=== PATIENT | male | born 1940 | race Two or more races ===

== ENCOUNTER 2018-07-27 12:16 | Emergency (ER) | payer MEDICARE, OTHER ==
[~2018-07-27] VITALS: Ht 175.3 cm; Wt 58.5 kg
[2018-07-27 12:17] VITALS: Ht 175.3 cm; Wt 58.5 kg
--- NOTE | 2018-07-27 12:31 | ERD ---
ER Documentation Chief Complaint Chief Complaint right 4th finger crush injury 4 days ago HPI 77-year-old male, presents to the emergency department, complaining of right fourth finger pain after sustaining an injury with a door 4 days ago. The patient is complaining of pressure-like sensation, but no fever, no chills, no numbness, full range of motion. ROS All systems reviewed and are negative except as per history of present illness. Allergies Allergies: Coded Allergies: No Known Allergy (Unverified , 07/27/18) FmHx Family History: No diabetes, No coronary disease Physical Exam Vitals Vital Signs Date Temp Pulse Resp B/P (MAP) Pulse Ox O2 O2 Flow FiO2 Time Delivery Rate 07/27/18 98.0 70 18 154/74 98 Room Air 14:03 (100) 07/27/18 98.3 95 18 166/74 98 12:17 (104) Physical Exam Const: No acute distress Head: Atraumatic Eyes: Normal Conjunctiva ENT: Normal External Ears, Nose and Mouth. Neck: Full range of motion. No meningismus. Resp: Clear to auscultation bilaterally Cardio: Regular rate and rhythm, no murmurs Abd: Soft, non tender, non distended. Normal bowel sounds Skin: No petechiae or rashes Back: No midline or flank tenderness Ext: No cyanosis, or edema Right fourth finger: Subungual hematoma. No deformity, capillary refill less than 3 seconds. Neur: Awake and alert Psych: Normal Mood and Affect Procedures/MDM Differential diagnosis include but not limited to: Open fracture, nail bed injury, complete avulsion, neurovascular damage. Pertinent Data: Radiology: No evidence of fracture or dislocation. Procedure: Subungual hematoma drainage The procedure was explained and consent obtained. Anesthesia: None Location: Right fourth finger Tendon/Joint/Nerves: No injury Technique: Hyfrecator used to open 2 holes, obtaining approximately 1 cc of blood. The patient tolerated the procedure well without complications. The patient is stable to be treated outpatient and will be discharged home. Instructions explained and given directly by me to the patient with acknowledgment and demonstrated understanding. Disclaimer: Inadvertent spelling and grammatical errors are likely due to EHR/dictation software use and do not reflect on the overall quality of patient care. Also, please note that the electronic time recorded on this note does not necessarily reflect the actual time of the patient encounter. Departure Diagnosis: Primary Impression: Subungual hematoma of finger of right hand Condition: Stable Additional Instructions: Thank you very much for allowing us to participate in your care. Your health and safety is our top priority at [facility]. Call your primary care doctor TOMORROW for an appointment during the next 2-4 days and bring all the information and medications prescribed. Have prescriptions filled and follow precisely the directions on the label. If the symptoms get worse and your provider is unavailable, return to the Emergency Department immediately. SHAYNA BEGUM MD Jul 27, 2018 12:31
[2018-07-27 14:03] VITALS: BP 154/74; PULSE 70; RESP 18
== END 2018-07-27 14:04 | disposition home or self-care (01) ==
LOC: FTE 12:16
DX: S60.141A Contusion of right ring finger with damage to nail, initial encounter (principal); W23.0XXA Caught, crushed, jammed, or pinched between moving objects, initial encounter; Y92.9 Unspecified place or not applicable
CPT/HCPCS: 73140